=== PATIENT | male | born 1985 | race Hispanic/Latino ===

== ENCOUNTER 2017-08-31 22:29 | Emergency (ER) | payer OTHER ==
[2017-08-31 22:42] VITALS: BP 116/72; PULSE 82; RESP 18; TEMP 97.9; O2SAT 98
--- NOTE | 2017-08-31 23:02 | ED PDOC ---
HPI: General Adult Time Seen by Provider: 08/31/17 22:44 Chief Complaint (Nursing): Groin Pain Chief Complaint (Provider): groin pain History Per: Patient Additional Complaint(s): 32-year-old male presents to emergency department with pain to groin and bilateral testes status post being kicked during soccer game this evening. Patient expected pain to subside but hasn't. He presents with worsening pain and swelling. He has no open wounds or bruising. No meds taken for pain relief prior to arrival. Past Medical History Reviewed: Historical Data, Nursing Documentation, Vital Signs Vital Signs: Last Vital Signs Temp 97.9 F 08/31/17 22:40 Pulse 82 08/31/17 22:40 Resp 18 08/31/17 22:40 BP 116/72 08/31/17 22:40 Pulse Ox 98 08/31/17 23:04 - Medical History PMH: No Chronic Diseases - Family History Family History: States: No Known Family Hx - Living Arrangements Living Arrangements: With Friends/Others - Social History Current smoker - smoking cessation education provided: No Alcohol: None Drugs: Denies - Allergies Allergies/Adverse Reactions: Allergies Allergy/AdvReac Type Severity Reaction Status Date / Time No Known Allergies Allergy Verified 08/31/17 22:40 Review of Systems ROS Statement: Except As Marked, All Systems Reviewed And Found Negative Genitourinary Male: Positive for: Other (groin and scrotal trauma) Physical Exam - Reviewed Nursing Documentation Reviewed: Yes Vital Signs Reviewed: Yes - Physical Exam Appears: Positive for: Well, Non-toxic, No Acute Distress Skin: Negative for: Rash Eye Exam: Positive for: Normal appearance Cardiovascular/Chest: Positive for: Regular Rate, Rhythm Respiratory: Positive for: Normal Breath Sounds Gastrointestinal/Abdominal: Positive for: Soft. Negative for: Tenderness, Distended, Guarding, Rebound Male Genital Exam: Positive for: scrotum tenderness (R), scrotum tenderness (L) , testicular tenderness (R), testicular tenderness (L), other (diffuse mild swelling to scrotum, no open wounds or ecchymosis) Extremity: Positive for: Normal ROM Neurologic/Psych: Positive for: Alert, Oriented - Laboratory Results Urine dip results: Positive for: Ketones (trace). Negative for: Leukocyte Esterase, Blood, Nitrate, Glucose, Bilirubin, Protein - ECG O2 Sat by Pulse Oximetry: 98 Pulse Ox Interpretation: Normal - Other Rad Testes US X-Ray: Read By Radiologist X-Ray Interpretation: see below Medical Decision Making Medical Decision Makin32 year old with groin and scrotal injury Plan: Testes US Urine dip US: IMPRESSION: 1. Mild left varicocele. 2. Otherwise negative testicular sonogram with bilateral blood flow. Patient aware of all diagnostic testing results. Disposition - Clinical Impression Clinical Impression: Groin strain, Contusion of scrotum Counseled Patient/Family Regarding: Studies Performed, Diagnosis, Need For Followup - Disposition Referrals: Yoli Montilla MD [Medical Doctor] - Disposition: Routine/Home Disposition Time: 23:45 Condition: STABLE Additional Instructions: Ice affected area advil for pain as needed Follow up with primary care doctor or with urologist for any persistent symptoms. Instructions: Contusion in Adults (ED), Groin Strain (ED) Forms: View and Chew (Maltese)
--- NOTE | 2017-09-01 11:07 | US ---
HISTORY: Trauma to groin, testicles TECHNIQUE: Realtime sonography through the scrotum with color and doppler flow. COMPARISON: None Available. FINDINGS: RIGHT TESTICLE: Measures 4.3 x 2.7 x 2.9 cm. Normal echotexture and flow. RIGHT EPIDIDYMIS: Epididymal head measures 1.0 x 0.4 x 0.4 cm. Grossly unremarkable appearance with normal flow. LEFT TESTICLE: Measures 4.0 x 2.4 x 2.6 cm. Normal echotexture and flow. LEFT EPIDIDYMIS: Epididymal head measures 0.7 x 0.5 x 0.5 cm. Grossly unremarkable appearance with normal flow. HYDROCELE: There is a small right hydrocele. No left hydrocele. VARICOCELE: There is a small left varicocele. OTHER FINDINGS: None. IMPRESSION: 1. No evidence of testicular hemorrhage or torsion. 2. Small left varicocele. 3. Small right hydrocele.
== END 2017-08-31 23:53 | disposition home or self-care (01) ==
LOC: H.ER 22:29
DX: S30.22XA Contusion of scrotum and testes, initial encounter (principal); W22.8XXA Striking against or struck by other objects, initial encounter; Y92.322 Soccer field as the place of occurrence of the external cause